=== PATIENT | male | born 1950 | race Caucasian/White ===

== ENCOUNTER 2019-05-14 16:33 | Observation (INO) ==
[2019-05-14] MEDS ORDERED: NS 1,000 ML ONE (16:48)
[2019-05-14 17:15] LABS: BASO# 0.06 X1000 (0.0-0.2); BASO% 0.5 % (0.0-0.8); EOS# 0.24 X1000 (0.0-0.7); EOS% 1.8 % (0.0-10.0); HEMATOCRIT 38.2 % (42.0-52.0); HEMOGLOBIN 13.1 g/dL (14.0-18.0); IMM GRAN# 0.03 X1000 (0.0-0.04); IMM GRAN% 0.2 % (0.0-0.5); LYMPH# 2.12 X1000 (1.2-3.4); LYMPH% 16.2 % (20.5-51.1); MCH 32.8 PG (27-31); MCHC 34.3 g/dL (33-37); MCV 95.7 FL (81-99); MONO# 1.32 X1000 (0.11-0.59); MONO% 10.1 % (1.7-9.3); MPV 10.4 FL (7.4-10.4); NEUT# 9.32 X1000 (1.4-6.5); NEUT% 71.2 % (42.2-75.2); PLT 221 X1000 (130-400); RBC 3.99 XMIL (4.7-6.1); RDW 13.1 % (11.5-14.5); WBC 13.09 X1000 (4.8-10.8)
--- NOTE | 2019-05-14 17:18 | EKG Report ---
Test Performed on : 05/14/2019 5:16:08 PM Test Reason : stroke like sym Blood Pressure : / mmHG Vent. Rate : 053 BPM Atrial Rate : 053 BPM P-R Int : 144 ms QRS Dur : 092 ms QT Int : 512 ms P-R-T Axes : 078 -19 048 degrees QTc Int : 480 ms Sinus bradycardia. with occasional premature ventricular complexes. Inferior infarct , age undetermined Cannot rule out Anterior infarct , age undetermined Abnormal ECG No previous ECGs available Unconfirmed Result
[2019-05-14] MEDS ORDERED: NS 1,000 ML IV ONE ×2 (17:23→23:39)
[2019-05-14 17:28] LABS: INR 1.84; PROTIME 22.1 Seconds (11.0-16.0)
[2019-05-14 17:29] LABS: PTT 38.5 Seconds (22.3-41.8)
[2019-05-14 17:45] LABS: ALBUMIN 4.2 g/dL (3.5-5.0); CALCIUM 8.3 mg/dL (8.8-10.2); CREATININE 1.4 mg/dL (0.7-1.2); POTASSIUM 3.6 mmol/L (3.5-5.1); TOTAL BILIRUBIN 0.6 mg/dL (0.20-1.00); TOTAL PROTEIN 7.2 g/dL (6.3-8.3)
[2019-05-14] MEDS ORDERED: MAGNESIUM SULFATE 2 GM/S.W.I. 2 GM/50 ML IVPB IV ONE (17:46)
--- NOTE | 2019-05-14 17:46 | Diag Imaging Result Doc PS360 ---
EXAM: CHEST-2 VIEWS - 05/14/2019 HISTORY: stroke like sym TECHNIQUE: Chest two views COMPARISON: None. FINDINGS: Heart size appears within normal limits. There are sternal wires from previous surgery. There is some tortuosity of the descending aorta. There are apparent mild COPD changes. There is apparent mild scarring at the left base. There is no dense consolidation, substantial pleural effusion, or pneumothorax identified. IMPRESSION: Apparent mild COPD changes. Apparent mild left basilar scarring. No discrete pneumonia. Electronically signed by Kirk Rivera 05/14/2019 5:44 PM
--- NOTE | 2019-05-14 17:53 | Diag Imaging Result Doc PS360 ---
EXAM: CT HEAD W/O CONTRAST - 05/14/2019 HISTORY: stroke like sym TECHNIQUE: CT head without contrast COMPARISON: None. FINDINGS: There is apparent encephalomalacia from old infarct at the left inferior parietal lobe. There are chronic appearing microvascular ischemic changes. There is apparent old small infarct at the right cerebellar hemisphere. There is no acute-appearing infarct identified, although acute infarcts may not be immediately visible. There are atherosclerotic calcifications noted at the base the brain. There is no evidence of intracranial hemorrhage, mass effect, or midline shift. IMPRESSION: Chronic appearing ischemic changes. No hemorrhage or mass effect. This exam was performed using automated exposure control, adjustment of mA or kV according to patient size, and/or use of iterative reconstruction technique. Electronically signed by Kirk Rivera 05/14/2019 5:51 PM
[2019-05-14 17:58] LABS: CK INDEX 1.4 (0.0-2.5); CK-MB 3.24 ng/mL (0.0-5.0)
--- NOTE | 2019-05-14 18:14 | PROVIDER DOCUMENTATION ---
This chart was entered by Atiya Bowers Scribe, acting as scribe for Cornelio Orellana MD. HPI-Neurological Disorder - General Chief Complaint: Stroke-Like Symptoms Stated Complaint: STROKE SX Time Seen by Provider: 05/14/19 16:45 Source: patient, family (Daughter) Allergies/Adverse Reactions: Patient Allergies Allergy/AdvReac Type Severity Reaction Status Date / Time codeine AdvReac NAUSEA/VOMI Verified 05/14/19 16:40 TING - History of Present Illness-Neuro Nature of Presenting Problem: 68 y/o male presents to the ED with complaint of his right face feeling "different" and right eye deviating to the right after being at the park today. The patient states he is back to normal on exam and is only having slight difficulty finding his words or expressing his thoughts and headache from right orbit to right occipital region. Daughter gives a history of AR times six, triple bypass, stroke/TIA times three and currently takes Xarelto. Denies motor or sensory changes other than facial symptoms. Headache Location: reports: frontal (right to righrt occipital) Onset/Duration: reports: just prior to arrival Timing: reports: resolved prior to arrival Context: reports: other (right eye deviation laterally, jumbling of words) Any recent trauma/injury?: reports: none Character of Deficits: reports: altered sensation (right face) New weakness or altered sensation location:: reports: right facial Cognitive Baseline: alert, oriented x3 Associated Symptoms: denies: fever/chills, nausea, numbness in legs/feet, diaphoretic, vomiting, weakness Similar Symptoms Previously?: Yes Recently seen or treated by another doctor?: No Review of Systems - Adult - REVIEW OF SYSTEMS - ADULT Constitutional: denies: chills, fever, weight gain, weight loss Eyes: reports: no symptoms reported Ears, Nose, Mouth & Throat: reports: no symptoms reported Cardiovascular: denies: chest pain, palpitations, syncope Respiratory: denies: hemoptysis, shortness of breath, wheezing Gastrointestinal: denies: diarrhea, nausea, vomiting Genitourinary: reports: no symptoms reported Musculoskeletal: reports: no symptoms reported Integumentary: reports: no symptoms reported Neurological: reports: dizziness/vertigo, other (right face odd sensation, right eye deviation laterally, jumbling of words). denies: slurred speech, syncope Psychiatric: reports: no symptoms reported Endocrine: reports: no symptoms reported Hematologic/Lymphatic: reports: no symptoms reported Allergic/Immunologic: reports: no symptoms reported All Other Systems: Reviewed and Negative Past History - Adult - PAST MEDICAL HISTORY-ADULT Review of Records: reports: Old Records Reviewed, Nursing Assessment Review, Medications Reviewed - IMMUNIZATION STATUS Childhood Immunizations: See Nurse Assessment Flu Vaccine: See Nurse Assessment - SOCIAL HISTORY Smoking: other (former smoker) Substance Use: none/never Alcohol Use Frequency: never Living Situation: family Physical Exam- Neurological - Physical Exam-Neuro Initial Vital Signs Reviewed: Yes General Appearance: alert, no apparent distress Eye Exam: bilateral eye: PERRL HENMT: normocephalic/atraumatic, moist mucous membranes Head Injury: no evidence of injury. negative: active bleeding, Franz's Sign, raccoon eyes, tenderness Neck: full range of motion, supple Extremity: normal range of motion, no pedal edema. negative: pulse deficit yield loss inspector Exam: normal hearing, normal speech, PERRL. negative: facial asymmetry, facial droop, gaze palsy Coordination/Gait: normal finger to nose Motor/Sensory: no motor deficit, no sensory deficit Neurologic: yield loss inspector II-XII nml as tested Integumentary: normal color, warm/dry. negative: diaphoresis Progress - PLAN OF CARE/RESULTS Progress/Plan/Lab Results: Vital Signs - 8 hr 05/14/19 16:36 Temperature 98 F Pulse Rate 55 L Respiratory Rate 18 Blood Pressure 158/81 O2 Sat by Pulse Oximetry 96 Laboratory Results - last 24 hr 05/14/19 05/14/19 05/14/19 17:05 17:05 17:05 WBC 13.09 H RBC 3.99 L Hgb 13.1 L Hct 38.2 L MCV 95.7 MCH 32.8 H MCHC 34.3 RDW Std Deviation 13.1 Plt Count 221 MPV 10.4 Immature Gran % (Auto) 0.2 Neut % (Auto) 71.2 Lymph % (Auto) 16.2 L [place] % (Auto) 10.1 H Eos % (Auto) 1.8 Baso % (Auto) 0.5 Immature Gran # (Auto) 0.03 Neut # (Auto) 9.32 H Lymph # (Auto) 2.12 [place] # (Auto) 1.32 H Eos # (Auto) 0.24 Baso # (Auto) 0.06 PT INR PTT (Actin FS) D-Dimer, Quantitative Sodium Potassium Chloride Carbon Dioxide Anion Gap BUN Creatinine Estimated GFR/1.73 m2 BUN/Creatinine Ratio Glucose Calculated Osmolality Calcium Magnesium Total Bilirubin AST ALT Alkaline Phosphatase Creatine Kinase 233 H Creatine Kinase Index 1.4 CK-MB (CK-2) 3.24 Troponin T < 0.010 Ock-N-Obtfhxftvma Pept Total Protein Albumin Globulin Albumin/Globulin Ratio 05/14/19 05/14/19 05/14/19 17:05 17:05 17:05 WBC RBC Hgb Hct MCV MCH MCHC RDW Std Deviation Plt Count MPV Immature Gran % (Auto) Neut % (Auto) Lymph % (Auto) [place] % (Auto) Eos % (Auto) Baso % (Auto) Immature Gran # (Auto) Neut # (Auto) Lymph # (Auto) [place] # (Auto) Eos # (Auto) Baso # (Auto) PT INR PTT (Actin FS) D-Dimer, Quantitative 0.85 H Sodium 140 Potassium 3.6 Chloride 99 Carbon Dioxide 25 Anion Gap 16 BUN 8 Creatinine 1.4 H Estimated GFR/1.73 m2 50 BUN/Creatinine Ratio 6 Glucose 105 H Calculated Osmolality 278 Calcium 8.3 L Magnesium 1.0 L* Total Bilirubin 0.60 AST 22 ALT 11 Alkaline Phosphatase 101 Creatine Kinase Creatine Kinase Index CK-MB (CK-2) Troponin T Hho-S-Xuhxlmnqxwf Pept 1691 H Total Protein 7.2 Albumin 4.2 Globulin 3.0 Albumin/Globulin Ratio 1.0 05/14/19 17:05 WBC RBC Hgb Hct MCV MCH MCHC RDW Std Deviation Plt Count MPV Immature Gran % (Auto) Neut % (Auto) Lymph % (Auto) [place] % (Auto) Eos % (Auto) Baso % (Auto) Immature Gran # (Auto) Neut # (Auto) Lymph # (Auto) [place] # (Auto) Eos # (Auto) Baso # (Auto) PT 22.1 H INR 1.84 PTT (Actin FS) 38.5 D-Dimer, Quantitative Sodium Potassium Chloride Carbon Dioxide Anion Gap BUN Creatinine Estimated GFR/1.73 m2 BUN/Creatinine Ratio Glucose Calculated Osmolality Calcium Magnesium Total Bilirubin AST ALT Alkaline Phosphatase Creatine Kinase Creatine Kinase Index CK-MB (CK-2) Troponin T Syx-F-Jzpuqdljhzr Pept Total Protein Albumin Globulin Albumin/Globulin Ratio Orders Category Date Time Status Nursing- Obtain EKG ONCE Care 05/14/19 16:42 Active CHEST-2 VIEWS [RAD] Stat Exams 05/14/19 16:[address] HEAD W/O CONTRAST [CT] Stat Exams 05/14/19 16:42 Completed CBC WITH DIFF [HEME] Stat Lab 05/14/19 17:05 Completed CK PROFILE [SP CHEM] Stat Lab 05/14/19 17:05 Completed COMPREHENSIVE METABOLIC PANEL [CHEM] Stat Lab 05/14/19 17:05 Completed D-DIMER [COAG] Stat Lab 05/14/19 17:05 Completed MAGNESIUM [CHEM] Stat Lab 05/14/19 17:05 Completed PRO B-NATRIURETIC PEPTIDE Stat Lab 05/14/19 17:05 Completed PROTIME WITH INR [COAG] Stat Lab 05/14/19 17:05 Completed PTT [COAG] Stat Lab 05/14/19 17:05 Completed TROPONIN T Stat Lab 05/14/19 17:05 Completed 0.9% Sodium Chloride Inj [Ns] 1,000 ml Med 05/14/19 16:48 Discontinued .ROUTE As directed 0.9% Sodium Chloride Inj [Ns] 1,000 ml Med 05/14/19 17:23 Active IV 999 mls/hr Magnesium Sulfate 2 gm/S.w.i. Med 05/14/19 17:46 Active 2 gm in 50 ml IV NOW EKG [EKG] Stat Ther 05/14/19 16:42 Draft Transfer/Admit Order [TRANSFER] Routine Transfer 05/14/19 18:06 Ordered Result Diagrams: 05/14/19 17:05 05/14/19 17:05 - EKG 1 Time of EKG reading by physician:: 17:16 EKG Read and Signed by:: Cornelio Orellana EKG Interpretation (*Must complete 3 of following elements*): Abnormal Rate: 53 Rhythm: sinus bradycardia w/occasional PVC Comments: inferior infarct age undetermined, cannot r/o anterior infarct age undeterm Departure - Departure Date of Disposition Decision: 05/14/19 Time of Disposition Decision: 18:13 DIAGNOSIS: TIA (transient ischemic attack) Disposition: ADMITTED INPATIENT 09 Certified Medical Emergency: Emergent Condition: Stable Referrals and Follow-Ups: Angela Jones [Primary Care Provider] - - Critical Care Note This patient required my direct & personal management of CC.: No Attestation - Physician/ MARIBEL Attestation Patient care was provided by Advanced Practice Provider:: No The physician spent face to face time with patient:: Yes Advanced Practice Provider documentation review:: Supervising physician onsite and consulted in the evaluation and care of this patient. The physician did have a face to face encounter with the patient. - NIH Stroke Scale Level of Consciousness: 0-Alert LOC Questions (ask month and age): 0-Answers Both Correctly LOC Commands (ask to open & close eyes;make a fist, let go): 0-Obeys Both Correctly Best Gaze (horizontal eye movement): 0-Normal Visual (use finger movement, counting or visual threat): 0-No Visual Loss Facial Palsy (show teeth or raise eyebrows & close eyes tght: 0-Symmetrical Movement Motor Function-left arm: 0-Normal Motor Function-right arm: 0-Normal Motor Function-left le-Normal Motor Function-right le-Normal Limb Ataxia(gbxckg-ioqd-pavxeu, or heel to benz): 0-No Ataxia Sensory(pin prick to face,arms,trunk,legs-compare side/side): 0-No Ataxia Best Language(name item/read sentence.Ex-Down to Earth): 0-No Aphasia Dysarthria(Pt read words or say words Ex.Mama,Tip-Top,Thanks: 0-Normal Articulation Extinction and Inattention: 0-Normal This chart was documented by the indicated scribe, (Atiya Bowers, Scribe) and accurately reflects the services I performed and decisions made by me, Cornelio Orellana MD, as attested by the provider's signature.
[2019-05-14] MEDS ORDERED: XARELTO PO ONE (23:39)
[2019-05-15] MEDS ORDERED: TYLENOL PO PRN (08:52)
[2019-05-15] MEDS ORDERED: ZOFRAN IV PRN (08:52)
--- NOTE | 2019-05-15 08:59 | Extremity Venous Study ---
EXAM: Carotid Ultrasound HISTORY: tia TECHNIQUE: Grayscale, duplex, and color Doppler evaluation was performed of the carotid arteries bilaterally. COMPARISON: None. FINDINGS: There is mild bilateral atherosclerotic plaque. There are no velocity elevations to suggest hemodynamically significant carotid artery stenosis. Maximum peak systolic velocity right internal carotid artery is 75 cm/s. Maximal systolic velocity left internal carotid artery is 76 cm/s. ICA/CCA ratios are within normal limits. Bilateral vertebral arterial flow is antegrade. IMPRESSION: No evidence for hemodynamically significant carotid artery stenosis. Estimated stenosis is less than 50% bilaterally. Electronically signed by Yolanda Roy 05/15/2019 8:57 AM
[2019-05-15] MEDS ORDERED: DESYREL PO SCH ×2 (09:00→21:00)
[2019-05-15] MEDS ORDERED: XARELTO PO SCH (09:00)
[2019-05-15] MEDS ORDERED: ARICEPT PO SCH ×2 (09:00→21:00)
[2019-05-15] MEDS ORDERED: LOVENOX SUBQ SCH (09:00)
[2019-05-15] MEDS ORDERED: KLOR-CON PO SCH ×2 (09:00→21:00)
[2019-05-15 09:40] LABS: BASO# 0.03 X1000 (0.0-0.2); BASO% 0.4 % (0.0-0.8); EOS# 0.38 X1000 (0.0-0.7); EOS% 4.9 % (0.0-10.0); HEMATOCRIT 33.2 % (42.0-52.0); HEMOGLOBIN 11.2 g/dL (14.0-18.0); IMM GRAN# 0.01 X1000 (0.0-0.04); IMM GRAN% 0.1 % (0.0-0.5); LYMPH# 1.71 X1000 (1.2-3.4); MCH 32.6 PG (27-31); MCHC 33.7 g/dL (33-37); MCV 96.5 FL (81-99); MONO# 0.49 X1000 (0.11-0.59); MONO% 6.3 % (1.7-9.3); MPV 10.5 FL (7.4-10.4); NEUT# 5.14 X1000 (1.4-6.5); NEUT% 66.3 % (42.2-75.2); PLT 199 X1000 (130-400); RBC 3.44 XMIL (4.7-6.1); WBC 7.76 X1000 (4.8-10.8)
--- NOTE | 2019-05-15 09:54 | EKG Report ---
Test Performed on : 05/15/2019 09:41:08 AM Test Reason : bradycardia Blood Pressure : / mmHG Vent. Rate : 050 BPM Atrial Rate : 050 BPM P-R Int : 128 ms QRS Dur : 088 ms QT Int : 510 ms P-R-T Axes : 029 -19 016 degrees QTc Int : 464 ms Sinus bradycardia. Inferior infarct (cited on or before 14-MAY-2019) Abnormal ECG When compared with ECG of 14-MAY-2019 17:16, (Unconfirmed) premature ventricular complexes. are no longer present T wave inversion more evident in Inferior leads Unconfirmed Result
[2019-05-15 09:55] LABS: AGAP 10; ALBUMIN 3.4 g/dL (3.5-5.0); ALKALINE PHOSPHATASE 91 U/L (32-122); BUN 6 mg/dL (8-22); CALCIUM 7.7 mg/dL (8.8-10.2); CHLORIDE 105 mmol/L (98-107); CK PROFILE 143 U/L (24-204); COSMO 282; CREATININE 1.1 mg/dL (0.7-1.2); ESTIMATED GFR > 60; GLUCOSE 158 mg/dL (70-104); GOT 16 U/L (10-34); GPT 9 U/L (10-44); IRON SATURATION 42 %; MAGNESIUM 1.3 mg/dL (1.5-2.7); PHOSPHORUS 2.9 mg/dL (2.7-4.5); POTASSIUM 3.5 mmol/L (3.5-5.1); SODIUM 141 mmol/L (136-145); TCO2 26 mmol/L (25-35); TIBC 156 ug/dL; TOTAL IRON 65 ug/dL (53-167); UNBOUND IRON 91 ug/dL (112-346)
[2019-05-15 10:00] LABS: HEMOGLOBIN A1C 5.3 % (4.8-6.0)
[2019-05-15 10:22] LABS: FREE T4 1.19 ng/dL (0.93-1.70); TSH 1.09 uIUmL (0.27-4.20)
[2019-05-15] MEDS ORDERED: MAGNESIUM SULFATE 2 GM/S.W.I. 2 GM/50 ML IVPB IV ONE ×2 (10:58→12:00)
[2019-05-15 11:07] LABS: BILIRUBIN URINE NEGATIVE (NEGATIVE); BLOOD URINE NEGATIVE (NEGATIVE); CLARITY CLEAR (CLEAR); COLOR YELLOW; GLUCOSE URINE NEGATIVE (NEGATIVE); KETONE URINE TRACE mg/dL (NEGATIVE); LEUKOCYTES URINE TRACE (NEGATIVE); NITRITE URINE NEGATIVE (NEGATIVE); PH URINE 6.5; PROTEIN URINE TRACE mg/dL (NEGATIVE); UROBILINOGEN URINE 4 mg/dL
[2019-05-15 11:12] LABS: URINE BACTERIA NEGATIVE /HFP; URINE CAST NONE SEEN /LPF; URINE CRYSTAL NONE SEEN /HPF; URINE EPITHELIAL CELLS <10 /HPF (<10); URINE RBC <10 /HPF (<10); URINE SOURCE CLEAN CATCH; URINE YEAST NONE SEEN /HPF
[2019-05-15] MEDS ORDERED: MAG-OX PO ONE (11:22)
--- NOTE | 2019-05-15 11:29 | HISTORY AND PHYSICAL ---
CHIEF COMPLAINT: Right-sided headache with right eye deviation and garbled speech. HISTORY OF PRESENT ILLNESS: Mr. 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 His only deficit from those strokes is having the occasional time where he cannot come up with what he wants to say, which the daughter states is very rare. He has been on Xarelto for this. Also has a history of COPD, coronary artery disease with myocardial infarction and CABG x3, anxiety, and apparently he also had a seizure last year from abrupt medication change for anxiety. It was a one time isolated event. The patient states that for the last 3 weeks, he has had on and off blurred vision from his right eye along with a right occipital headache that has been intermittent as well. Yesterday on Father's Day, he apparently was at the park, felt like he got too hot and started having some right eye blurred vision. He went home and called his kids. Daughter, who is at the bedside, states that his words were jumbled, was having expressive aphasia but not receptive aphasia. Receptively, he would respond, but it was just slow response or stalled response. He initially started with sweating, and his words were also out of sequence, and the patient states that his right face just felt funny, not necessarily numb or tingly but just felt funny. The right eye was deviated outwardly. He presented with these complaints. Apparently they started around 3:15 p.m. yesterday, but he had also been complaining of the blurred vision on and off, headaches for at least 3 weeks. It is noted on a CAT scan that he has had an old small right cerebellar CVA in the past. CT did not show anything acute, but we will get brain MRI, MRA and neck MRA as well and a carotid ultrasound. He has had an echocardiogram most recently which showed systolic ejection fraction of 45% which is down from a couple of years ago. It showed some diastolic dysfunction, and it also showed pulmonary artery hypertension of 60 mmHg. Currently he is on the Medical Floor. Symptoms have resolved except he does not really know if he still has a headache or not, he is not sure. Denies any dizziness, lightheadedness, nausea, vomiting or diarrhea, all of those are denied. Most importantly, Mr. Dubois had an umbilical hernia repair with mesh on 05/03/2019. Before this surgery, his Xarelto was stopped for 10 days. It was stopped between 04/26/2019 and 05/05/2019, so this may have added to the risk for having stroke or TIA. He has been resumed on his Xarelto. PAST MEDICAL HISTORY: 1. Echocardiogram on 04/28/2019 shows systolic congestive heart failure, ejection fraction 45%, diastolic dysfunction and pulmonary artery hypertension at 60 mmHg. 2. Left inferior parietal lobe CVA which left him with some speech occasional expressive aphasia, but the daughter states is very rare. 3. Old small right cerebellar CVA. The daughter states at one point in time, he was diagnosed with vertigo, so that may have been from that. 4. TIA. 5. One seizure last year, isolated event after an abrupt stop in one of his anxiety medications. 6. Anxiety. 7. COPD with left basilar scarring and history of asbestosis exposure. 8. Myocardial infarction x6 with coronary artery bypass grafting x3. 9. Hyperlipidemia. 10.Hypertension. 11.GERD. 12.Gout in the legs. 13.Memory loss but denies dementia. 14.Diverticulosis. 15.Skin cancer with skin cancer excision. PAST SURGICAL HISTORY: 1. CABG x3. 2. On 05/03/[address] Ybarra in [place], had an umbilical hernia with mesh repair. 3. Bilateral inguinal hernia repairs twice. 4. Rhinoplasty. 5. Cholecystectomy. 6. EGD in the past but unsure of the last time. 7. Colonoscopy in 03/2019 which showed mild colitis at that time. 8. Skin cancer excision. SOCIAL HISTORY: Lives alone. Two pack per day smoker for 50 plus years, quit 09/2018. 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 Denies alcohol or illicit drug use. FAMILY HISTORY: Mother had rheumatoid arthritis. Father had myocardial infarction and also had aortic aneurysm. ALLERGIES: Codeine. HOME MEDICATIONS: 1. Trazodone 50 mg p.o. nightly. 2. Donepezil HCl 5 mg p.o. nightly. 3. Furosemide 20 mg p.o. daily. 4. [place] 5 one tab p.o. every 4 to 6 hours p.r.n. 5. Atorvastatin 20 mg p.o. nightly. 6. Toprol 25 mg p.o. daily. 7. Losartan potassium 50 mg p.o. daily. 8. Potassium chloride 10 mEq p.o. nightly. 9. Protonix 40 mg p.o. daily. 10.Xarelto 10 mg p.o. daily. 11.Allopurinol 300 mg p.o. daily. REVIEW OF SYSTEMS: A 14-point review of systems are complete, and all are negative except for those mentioned in the above HPI. PHYSICAL EXAMINATION: VITAL SIGNS: Temperature 97.6, heart rate 49, respiratory rate 18, blood pressure 132/57, O2 saturation 97% on 2 L nasal cannula. GENERAL: Mr. Giorgi Dubois is a 68-year-old male. He is in no acute distress. He is able to answer questions appropriately. HEENT: Atraumatic and normocephalic. Pupils are equal, round and reactive to light. Extraocular movements were intact. Mucous membranes are moist. NECK: Trachea midline. CARDIOVASCULAR: S1, S2. Regular rate and rhythm. No rubs, gallops or murmurs. No lower extremity edema. Plus 2 dorsalis and radial pulses. Negative JVD or carotid bruits. PULMONARY: Clear to auscultation, bilateral breath sounds. No accessory muscle use or work of breathing noted. GASTROINTESTINAL: Soft, nontender and nondistended. Positive bowel sounds x4. EXTREMITIES: Moves all extremities equally with full range of motion. NEUROLOGICAL: Alert and oriented x3. Follows commands. Sensory is intact. SKIN: Warm, dry and intact. DIAGNOSTIC DATA: White blood cells 7000, hemoglobin INCOMPLETE DICTATION--ENDS HERE Dictated by NADIYA Sepulveda for Beto Dyer MD cc: NADIYA Sepulveda MD
[2019-05-15] MEDS ORDERED: ATIVAN IV ONE (12:39)
[2019-05-15 12:55] VITALS: BP 149/69
--- NOTE | 2019-05-15 14:34 | Diag Imaging Result Doc PS360 ---
EXAM: MRA BRAIN W/O CONTRAST HISTORY: cva symptoms TECHNIQUE: Routine. COMPARISON: CT brain 05/14/2019 FINDINGS: 3-D [id number] images reveal appropriate flow in the large arteries of the brain including bilateral common carotid, anterior cerebral, middle cerebral, basilar, and posterior cerebral arteries. There may be a origin of the right DELIVERY DRIVER, normal variant. No aneurysm is appreciated. No focal vascular occlusion. IMPRESSION: No aneurysm or large vessel occlusion is appreciated. Electronically signed by Yolanda Roy 05/15/2019 2:31 PM
--- NOTE | 2019-05-15 14:44 | Diag Imaging Result Doc PS360 ---
EXAM: MRI BRAIN W/WO CONTRAST HISTORY: cva symptoms TECHNIQUE: Routine with and without contrast. COMPARISON: CT brain 05/14/2019 FINDINGS: Images are degraded by patient motion. Diffusion images show no evidence for acute infarct. There is marked atrophy and diffuse deep white matter T2 hyperintensity nonspecific in appearance but likely related to microvascular disease. There are T2 hyperintensities right cerebellar hemisphere likely related to old lacunar infarcts. No mass effect or midline shift is appreciated. No extra-axial collections are identified. No hemorrhage is appreciated. There are no abnormal regions of contrast enhancement. IMPRESSION: Atrophy and microvascular disease. No acute intracranial abnormalities. Electronically signed by Yolanda Roy 05/15/2019 2:42 PM
--- NOTE | 2019-05-15 14:58 | Diag Imaging Result Doc PS360 ---
EXAM: MRA NECK W/O CONT HISTORY: cva symptoms TECHNIQUE: MRA of the neck without contrast. Exam limited by patient motion. COMPARISON: None. FINDINGS: Origins of the great vessels are patent. Vertebral arteries patent. Bilateral carotid arteries widely patent. There is mild narrowing of the bilateral proximal internal carotid arteries at the origins by approximately 50%. No focal occlusion or high-grade stenosis is appreciated. IMPRESSION: Narrowing of the bilateral proximal internal carotid arteries by approximately 50%. Limited exam by patient motion. Electronically signed by Yolanda Roy 05/15/2019 2:56 PM
--- NOTE | 2019-05-15 15:47 | Extremity Venous Study ---
EXAM: Venous U/S Bilateral Legs HISTORY: elevated ddimer; cva symptoms TECHNIQUE: [place]ritchard scale, color Doppler, and duplex evaluation was performed. COMPARISON: None. FINDINGS: The deep veins of the bilateral lower extremities demonstrate appropriate compressibility and augmentation. No intraluminal thrombus is visualized. There is no evidence for DVT. The superficial veins appear patent. IMPRESSION: No evidence for deep venous thrombosis bilateral lower extremities. Electronically signed by Yolanda Roy 05/15/2019 3:45 PM
--- NOTE | 2019-05-15 16:14 | HISTORY AND PHYSICAL ---
INCOMPLETE DICTATION--STARTS HERE DIAGNOSTIC DATA: White blood cells 7000, hemoglobin 11, hematocrit 33, platelet count 199. Sodium is 141, potassium 3.5, BUN is 6, creatinine 1.1, glucose 158, calcium 7.7, phosphorus 2.9, magnesium 1.3, iron 65, total iron binding capacity is 156, saturation 42, unsaturated iron binding is 91. Total bilirubin is 0.50, AST is 16, ALT is 9, ammonia 17. CK is 143. Troponin less than 0.01. ProBNP is 1691. Albumin is 3.4, serum lactate is 2.3. IMAGING: Chest x-ray on 05/14/2019 showed apparent mild COPD changes, apparent mild left basilar scarring, no discrete pneumonia. EKG showed sinus bradycardia, occasional PVCs, rate 53, QTC was 480. Head CT with chronic appearing ischemic changes, no hemorrhage or mass effect. Repeat EKG with sinus bradycardia, rate 50, QTC was 464. Carotid ultrasound with no evidence for hemodynamically significant carotid artery stenosis, estimated stenosis is less than 50% bilaterally. ASSESSMENT AND PLAN: 1. Transient ischemic attack versus cerebrovascular accident versus seizure. He was stopped from 04/26/2019 to 05/05/2019 on his Xarelto for preparation of the umbilical hernia surgery. He did resume his medication as prescribed and then states that over the last 3 weeks that he has been having on and off headaches on the right occipital area along with blurred vision. Yesterday, he had right outwardly deviated right eye with blurred vision, expressive aphasia, jumbled words. The head CT was negative for any acute findings. The carotid ultrasound was also negative. He will have MRI/MRA of the brain and neck. He has most recently had an echocardiogram on the last day of 03/2019 which did show some mild congestive heart failure, diastolic dysfunction and pulmonary hypertension. Apparently he has had a seizure last year from an abrupt stop in one of his anxiety medications. The daughter was unsure of what medication it was, but it was apparently an isolated event. So we will monitor him and follow up on his imaging. He will have a lipid panel and hemoglobin A1c drawn. 2. Systolic congestive heart failure with diastolic dysfunction and pulmonary hypertension. He is on Lasix at home, but his lactate is up a little bit, so we will hold off on Lasix. 3. History of cerebrovascular accident. See number 1. Xarelto has been continued, and he is on statin as well. 4. Coronary artery disease with myocardial infarction and CABG in the past. Currently we are going to hold his beta smith, as his heart rate is in the 40s to low 50s, with stable blood pressure, but we are going to allow for permissive hypertension as well. 5. Hypertension. Hold antihypertensives and allow for permissive hypertension. He is running in the 130s systolically. 6. Hyperlipidemia. Continue statin. 7. Gastroesophageal reflux disease. Continue Protonix. 8. Gout. Holding his gout medication due to the mildly elevated creatinine. 9. Dehydration. He received IV fluid hydration. His creatinine was 1.4, and it is back down to normal this morning. Lactate still slightly up, so we are holding on his Lasix. He did have some leukocytosis, that is also resolved. It is probably all inflammatory. 10.Memory loss issues. Denies dementia. So we will continue on Aricept for now and trazodone for his anxiety at night. 11.Hypomagnesemia. He had a level of 1 yesterday, is up to 1.3. We will replace today. 12.Elevated D-dimer. He denies shortness of breath. There is really no inflammation in the legs. We will go ahead and get an ultrasound of the lower extremities, and it is just mildly elevated at 0.85. I feel like this was probably from dehydration. 13.Anemia. Anemia labs ordered. Probably all secondary to his most recent surgery of umbilical hernia repair. His hemoglobin and hematocrit are 11 and 33. Iron level is normal. B12 and folate are not back yet. 14.DVT prophylaxis. He is currently on Xarelto at 10 mg. We may need to increase it to 20, but we will see. Dictated by NADIYA Sepulveda for Beto Dyer MD cc: NADIYA Sepulveda MD
[2019-05-15] MEDS ORDERED: LIPITOR PO SCH (21:00)
[2019-05-16] MEDS ORDERED: PROTONIX PO SCH (07:00)
--- NOTE | 2019-05-16 09:57 | HISTORY AND PHYSICAL ---
ADDENDUM REPORT The patient presented with confusion. He has a history of 2 strokes. He had ocular symptoms, blurry vision, headache. He is usually on Xarelto but only on a 10 mg dose. This was decided upon because of bruising, not an overt bleed, but because of bruising and concern over bleeding, and he is currently on 10 mg of Xarelto alone. His neurological exam was really unremarkable. He does have some cognitive deficits but overall improved. He was a little bit dehydrated. Creatinine up a little bit at 1.4. No pronator drift. No facial asymmetry. He was admitted for workup, which he had extensive workup, MRI, MRA. All testing was unremarkable as far as acute CVA. He did have cerebral atrophy, but MRA of carotids was unremarkable. The patient was felt stable for discharge. I did recommend either going to 15 on his Xarelto or aspirin 81 mg, but he will decide that with his neurologist and follow up. This was a [id number] encounter with Gisela Cook. cc: Beto Dyer MD
== END 2019-05-15 17:34 | disposition home or self-care (01) ==
LOC: P.MEDSURG 16:33 → P.ED 16:33 → SUATTDRO 05-15 03:44
PROVIDERS: ATTEND Internal Medicine
CPT/HCPCS: 70450; 70544; 70547; 70553; 71020; 71046; 80053; 80061; 81001; 82140; 82550; 82553; 82607; 82728; 82746; 83036; 83540; 83550; 83605; 83721; 83735; 83880; 84100; 84439; 84443; 84484; 85025; 85379; 85610; 85730; 86140; 87040; 87088; 93005; 93880; 93970; 94761; 94799; A9270; A9579; J2060; J3475; J7030